=== PATIENT | female | born 1960 | race Asian ===

== ENCOUNTER → 2024-10-25 | Outpatient (CLI) | payer MEDICARE, MEDICAID, SELFPAY ==
--- NOTE | 2024-10-25 15:50 | XR_ITS ---
Examination: Bilateral hips, AP pelvis, 5 views Technique: AP, lateral views both hips, AP pelvis, 5 views Exam date and time: October 25, 2024 1548 hours INDICATIONS: Hip pain months FINDINGS: Mild narrowing right hip joint Moderate osteopenia No hip or pelvic fracture No avascular necrosis IMPRESSION: Mild right hip osteoarthritis
== END | disposition home or self-care (01) ==
PROVIDERS: PCP Physician Assistant; Referring Provider Physician Assistant; Visit Provider Physician Assistant
DX: M16.11 Unilateral primary osteoarthritis, right hip (principal)
CPT/HCPCS: 73523

== ENCOUNTER → 2024-12-20 | Outpatient (CLI) | payer MEDICARE, MEDICAID, SELFPAY ==
--- NOTE | 2024-12-20 14:35 | XR_ITS ---
Examination: Lumbar spine, 5 views Technique: Lumbar spine AP, lateral, coned lateral lower lumbar spine, bilateral obliques 5 views Exam date and time: December 20, 2024, 14 3 9 hours INDICATIONS: Low back pain beginning 5 months ago. FINDINGS: Lumbar levoscoliosis 12 degrees Severe osteopenia Advanced diffuse facet arthropathy Grade 1 anterolisthesis L5 on S1 Prominent lumbar spondylosis Mild diffuse lumbar degenerative disc disease IMPRESSION: Lumbar levoscoliosis 12 degrees Severe osteopenia Mild diffuse lumbar degenerative disc disease
== END | disposition home or self-care (01) ==
PROVIDERS: PCP Physician Assistant; Referring Provider Physician Assistant; Visit Provider Physician Assistant
DX: M51.360 Other intervertebral disc degeneration, lumbar region with discogenic back pain only (principal)
CPT/HCPCS: 72110